=== PATIENT | female | born 1945 | race African-American/Black ===

== ENCOUNTER 2021-08-28 13:02 | Observation (INO) | payer OTHER, MEDICARE ==
[2021-08-28 15:44] LABS: BASO % 0.6 % (0-2.0); EOS % 0.9 % (0-4.5); HEMATOCRIT 38.1 % (32.4-45.2); HEMOGLOBIN 13.2 GM/dL (10.7-15.3); LYMPH % 19.2 % (8-40); MCH 33.9 pg (25.7-33.7); MCHC 34.7 g/dl (32.0-36.0); MEAN CELL VOLUME 97.7 fl (80-96); MEAN PLT VOLUME 9.5 fl (7.5-11.1); MONO % 8.8 % (3.8-10.2); NEUT % 70.5 % (42.8-82.8); PLATELET COUNT 243 10^3/uL (134-434); RDW 12.2 % (11.6-15.6); WHITE BLOOD COUNT 5.2 K/mm3 (4.0-10.0)
[2021-08-28 15:50] LABS: INR 1.09 (0.83-1.09); PROTHROMBIN TIME (PATIENT) 12.8 SEC (9.7-13.0)
[2021-08-28 15:52] LABS: ACTIVATED PTT 26.4 SECONDS (25.2-36.5)
[2021-08-28 16:04] LABS: CHLORIDE 108 mmol/L (98-107); SODIUM 142 mmol/L (136-145)
[2021-08-28 16:05] LABS: CALCIUM 9.2 mg/dL (8.5-10.1)
[2021-08-28 16:06] LABS: ALBUMIN 3.5 g/dl (3.4-5.0); ANION GAP 7 MMOL/L (8-16); CO2 28 mmol/L (21-32); GLUCOSE,RANDOM 85 mg/dL (74-106); MAGNESIUM 2.2 mg/dL (1.8-2.4)
[2021-08-28 16:09] LABS: CREATININE 0.9 mg/dL (0.55-1.3); PHOSPHOROUS 3.1 mg/dL (2.5-4.9); SGOT/AST 23 U/L (15-37); SGPT/ALT 25 U/L (13-61)
[2021-08-28 16:11] LABS: BILIRUBIN,TOTAL 0.5 mg/dL (0.2-1); TOT PROT 7.2 g/dl (6.4-8.2)
[2021-08-28 16:12] LABS: ALK PHOS 70 U/L (45-117)
[2021-08-28 18:14] LABS: N-TERMINAL BNP 965.2 pg/ml (5-450)
[2021-08-28] MEDS ORDERED: LABETALOL HCL 100 MG TABLET (FP) PO ONE (22:41)
[2021-08-28] MEDS ORDERED: LABETALOL HCL 100 MG TABLET (FP) ONE (22:46)
[2021-08-29 01:38] VITALS: BMI 20.2
[2021-08-29] MEDS ORDERED: BENZOCAINE/MENTHOL 1 EACH LOZENGE MM PRN (04:53)
[2021-08-29] MEDS ORDERED: FAMOTIDINE 10 MG TABLET PO ONE (04:53)
[2021-08-29] MEDS: HEPARIN NA (PORCINE) 5,000 UNITS/ML 1ML VIAL SQ SCH ×3 (06:01→22:30)
[2021-08-29 08:15] LABS: INR 1.18 (0.83-1.09); PROTHROMBIN TIME (PATIENT) 13.2 SEC (9.7-13.0)
[2021-08-29 08:25] LABS: HEMATOCRIT 36.4 % (32.4-45.2); HEMOGLOBIN 12.8 GM/dL (10.7-15.3); MCH 33.9 pg (25.7-33.7); MCHC 35.1 g/dl (32.0-36.0); MEAN CELL VOLUME 96.7 fl (80-96); MEAN PLT VOLUME 9.3 fl (7.5-11.1); PLATELET COUNT 207 10^3/uL (134-434); RBC 3.77 M/mm3 (3.60-5.2); RDW 12.5 % (11.6-15.6); WHITE BLOOD COUNT 4.6 K/mm3 (4.0-10.0)
[2021-08-29 08:28] LABS: ALBUMIN 3.3 g/dl (3.4-5.0); BLOOD UREA NITROGEN 13.1 mg/dL (7-18); CALCIUM 8.7 mg/dL (8.5-10.1); CHOLESTEROL 175 mg/dL (50-200)
[2021-08-29 08:29] LABS: LDL CHOLESTEROL (ONLY SJRH) 79 mg/dL (5-100); MAGNESIUM 2.1 mg/dL (1.8-2.4); TRIGLYCERIDES 53 mg/dL (0-150)
[2021-08-29 08:31] LABS: CREATININE 0.8 mg/dL (0.55-1.3); PHOSPHOROUS 3.7 mg/dL (2.5-4.9)
[2021-08-29 08:32] LABS: BILIRUBIN,TOTAL 0.7 mg/dL (0.2-1); HDL CHOLESTEROL 79 mg/dL (40-60); TOT PROT 6.6 g/dl (6.4-8.2)
[2021-08-29] MEDS: LISINOPRIL 5 MG TABLET PO SCH (10:41)
[2021-08-29] MEDS: ATORVASTATIN CA 10 MG TABLET (FP) PO SCH (22:30)
[2021-08-30] MEDS: HEPARIN NA (PORCINE) 5,000 UNITS/ML 1ML VIAL SQ SCH ×4 (06:06→21:20)
[2021-08-30 08:00] LABS: HEMATOCRIT 40.9 % (32.4-45.2); MCH 33.6 pg (25.7-33.7); MCHC 34.2 g/dl (32.0-36.0); MEAN CELL VOLUME 98.2 fl (80-96); MEAN PLT VOLUME 9.6 fl (7.5-11.1); PLATELET COUNT 247 10^3/uL (134-434); RBC 4.16 M/mm3 (3.60-5.2); RDW 12.3 % (11.6-15.6); WHITE BLOOD COUNT 5.5 K/mm3 (4.0-10.0)
[2021-08-30 08:26] LABS: ALBUMIN 3.6 g/dl (3.4-5.0)
[2021-08-30 08:27] LABS: BLOOD UREA NITROGEN 11.5 mg/dL (7-18); CALCIUM 9.2 mg/dL (8.5-10.1); MAGNESIUM 2.2 mg/dL (1.8-2.4)
[2021-08-30 08:30] LABS: BILIRUBIN,TOTAL 0.7 mg/dL (0.2-1); CREATININE 0.9 mg/dL (0.55-1.3); PHOSPHOROUS 3.5 mg/dL (2.5-4.9); TOT PROT 7.5 g/dl (6.4-8.2)
[2021-08-30] MEDS: LISINOPRIL 5 MG TABLET PO SCH ×2 (10:51→12:32)
[2021-08-30] MEDS: ATORVASTATIN CA 10 MG TABLET (FP) PO SCH (21:20)
[2021-08-31] MEDS: HEPARIN NA (PORCINE) 5,000 UNITS/ML 1ML VIAL SQ SCH ×2 (05:39→13:29)
[2021-08-31 07:18] LABS: HEMATOCRIT 37.4 % (32.4-45.2); HEMOGLOBIN 12.7 GM/dL (10.7-15.3); MCH 33.4 pg (25.7-33.7); MCHC 33.9 g/dl (32.0-36.0); MEAN CELL VOLUME 98.4 fl (80-96); MEAN PLT VOLUME 9.6 fl (7.5-11.1); PLATELET COUNT 217 10^3/uL (134-434); RDW 12.5 % (11.6-15.6); WHITE BLOOD COUNT 4.7 K/mm3 (4.0-10.0)
[2021-08-31 07:55] LABS: ALBUMIN 3.2 g/dl (3.4-5.0); BILIRUBIN,TOTAL 0.7 mg/dL (0.2-1); BLOOD UREA NITROGEN 11.9 mg/dL (7-18); CALCIUM 8.7 mg/dL (8.5-10.1); CREATININE 0.9 mg/dL (0.55-1.3); TOT PROT 6.4 g/dl (6.4-8.2)
[2021-08-31] MEDS: LISINOPRIL 5 MG TABLET PO SCH ×2 (08:36→09:03)
[2021-08-31] MEDS ORDERED: LORazepam 2 MG/ML SDV VIAL IVPUSH ONE (08:45)
[2021-08-31] MEDS ORDERED: REGADENOSON 0.4 MG/5 ML PRE-FILLED SYRINGE IVPUSH ONE ×3 (08:47→11:00)
[2021-08-31 15:23] VITALS: BP 146/64; PULSE 87; TEMP 98.7
== END 2021-08-31 19:05 | disposition home or self-care (01) ==
LOC: JER 13:02 → INTOOBSV 14:41 → JERBED 14:41 → J4W 08-29 00:20
PROVIDERS: ATTEND Internal Medicine
PROC: 3E033NZ Introduction of Analgesics, Hypnotics, Sedatives into Peripheral Vein, Percutaneous Approach (ICD-10-PCS; principal; 2021-08-28)
PROC: 3E033GC Introduction of Other Therapeutic Substance into Peripheral Vein, Percutaneous Approach (ICD-10-PCS; 2021-08-28)
DX: R55 Syncope and collapse (principal); I10 Essential (primary) hypertension; E78.5 Hyperlipidemia, unspecified; M81.0 Age-related osteoporosis without current pathological fracture; Z98.890 Other specified postprocedural states; I44.7 Left bundle-branch block, unspecified
CPT/HCPCS: 36415; 71275-TC; 78452-TC; 80053; 80061; 82550; 82607; 82962; 83036; 83735; 83880; 84100; 84443; 84484; 85025; 85027; 85610; 85730; 93005; 93010; 93017; 93306-TC; 96374; 96375; 97116-GP; 97161-GP; 99285-25; A9502; C9803; G0378; J1644; J2785; Q9967; U0003; U0005